=== PATIENT | male | born 1980 | race Caucasian/White ===

== ENCOUNTER 2023-07-30 06:51 | Emergency (ER) | payer OTHER, SELFPAY ==
[2023-07-30 06:51] VITALS: BP 148/82; PULSE 94; TEMP 36.6; O2SAT 99; BMI 33.9
[2023-07-30 06:58] VITALS: PULSE 88
--- NOTE | 2023-07-30 07:24 | ECG_ITS ---
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
[2023-07-30] MEDS: ONDANSETRON 4 MG RAPDIS TABLET SL (07:35)
[2023-07-30] MEDS: LORAZEPAM 2 MG/ML VIAL IM (07:35)
--- NOTE | 2023-07-30 07:36 | ED.GENADUL1 ---
HPI HPI - General Adult General Chief complaint: Anxiety Stated complaint: POSS PANIC ATTACK Time Seen by Provider: 07/30/23 07:07 Source: patient Mode of arrival: ambulance Limitations: no limitations History of Present Illness HPI narrative: Patient is a 42-year-old male who is presenting to the ER today with chief complaint of anxiety/panic attacks/chest pain. Patient is also diaphoretic. Patient says this is very normal for his panic attacks. Patient is coming by EMS from [facility]. Patient states that he has a history anxiety and panic attacks. Patient takes BuSpar and clonidine. Patient was given Vistaril to help with panic attacks which did not relieve his symptoms. Patient is asking for shot of Ativan. Patient states he has history of using fentanyl and cocaine, he has not used in over 2 months. Patient did use marijuana several weeks ago. Patient says that he is not going through any type of withdrawal at this time. Patient denies any opiate or benzo withdrawal. Patient is not suicidal homicidal. Patient is asking for injection of Ativan to help with anxiety and panic attack which has helped in the past. Patient has no falls. No headache or neck pain. Chest tightness, mild shortness of breath. No abdominal pain nausea or vomiting. No diarrhea. No acute complaints All systems are negative except as noted/marked. All systems reviewed and otherwise negative. Nurses note and vital signs reviewed and patient is not hypoxic. General: The patient appears mild distress secondary to admitted anxiety and panic attack. Patient is resting uncomfortably on cart. Patient is not toxic, lethargic, or listless Skin: Diaphoresis, no pallor noted. There is no rash noted. No petechiae, purpura. Head: Normocephalic, atraumatic Eye: Normal conjunctiva, no drainage, EOMI. PERRL Ears, Nose, Mouth, and Throat: oral mucosa is moist. Nares patent. Mouth without vesicles. Cardiovascular: Regular Rate and Rhythm, no murmur, gallop, rub; no reproducible tenderness to palpation to anterior, lateral, posterior chest wall Respiratory: Patient is in no distress, no accessory muscle use, lungs are clear to auscultation, no wheezing, rales or rhonchi Back: non-tender, no CVA tenderness bilaterally to percussion. No CT LS midline pain GI: Obese, no tenderness to palpation, no masses appreciated. No rebound, guarding, or rigidity noted. No distention Musculoskeletal: Patient has full range of motion of all of the extremities, no motor, sensory, or focal neurological deficits Neurological: A&O x4, normal speech Psychiatric: Cooperative Related Data Home Medications ?Medication ?Instructions ?Recorded ?Confirmed amlodipine 5 mg tablet 5 mg PO DAILY 07/30/23 07/30/23 atorvastatin 10 mg tablet 10 mg PO DAILY 07/30/23 07/30/23 buspirone 15 mg tablet 15 mg PO DAILY 07/30/23 07/30/23 lisinopril 10 mg tablet 10 mg PO DAILY 07/30/23 07/30/23 quetiapine 300 mg tablet (Seroquel) 300 mg PO DAILY 07/30/23 07/30/23 Allergies Allergy/AdvReac Type Severity Reaction Status Date / Time lurasidone [From Latuda] Allergy Unknown Verified 07/30/23 06:54 Opioid HPI Opioid Management Most Recent Opioid Data: No Data to Display Exam Constitutional Vital Signs, click to edit/add: Last Vital Signs Temp 97.9 F 07/30/23 06:51 Pulse 94 H 07/30/23 06:51 Resp 20 07/30/23 06:51 BP 148/82 H 07/30/23 06:51 Pulse Ox 99 07/30/23 06:51 O2 Del Method Room Air 07/30/23 06:51 Course Vital Signs Vital signs: Vital Signs Temperature 97.9 F 07/30/23 06:51 Pulse Rate 94 H 07/30/23 06:51 Respiratory Rate 20 07/30/23 06:51 Blood Pressure 148/82 H 07/30/23 06:51 Pulse Oximetry 99 07/30/23 06:51 Oxygen Delivery Method Room Air 07/30/23 06:51 Temperature 97.9 F 07/30/23 06:51 Pulse Rate 94 H 07/30/23 06:51 Respiratory Rate 20 07/30/23 06:51 Blood Pressure 148/82 H 07/30/23 06:51 Pulse Oximetry 99 07/30/23 06:51 Oxygen Delivery Method Room Air 07/30/23 06:51 Medical Decision Making MDM Narrative Medical decision making narrative: Patient declined any treatment for chest pain. Patient allowed EKG. Patient refused chest x-ray, lab work, or any other additional testing. Patient is aware of risk and benefits of refusing any additional treatment. Patient only wants oral Zofran and injection of Ativan. Patient is thankful for help and treatment. Patient will be transferred back to [facility] facility. Patient was diaphoretic, patient did look uncomfortable when I walked into the room. Patient was given medication to help relax him, patient has a functional decision-making capacity to refuse any other testing today which she did. Patient does not appear to be under the influence of alcohol or drugs, patient was thankful for help Discharge Plan Discharge Stand Alone Forms: Portal Instructions Chief Complaint: Anxiety Clinical Impression: Anxiety, Panic attack, Chest pain Patient Disposition: Home, Self-Care Time of Disposition Decision: 08:19 Condition: Good Prescriptions / Home Meds: No Action lisinopril 10 mg tablet 10 mg PO DAILY buspirone 15 mg tablet 15 mg PO DAILY atorvastatin 10 mg tablet 10 mg PO DAILY amlodipine 5 mg tablet 5 mg PO DAILY quetiapine [Seroquel] 300 mg tablet 300 mg PO DAILY Print Language: Czech Instructions: Chest Pain (ED), Panic Disorder (ED), Anxiety (ED) Additional Instructions: Follow-up with your continued regimen at [facility]. Good luck with your sobriety. Referrals: Physician,Non-Staff, MD [Primary Care Provider] - 1 week
[2023-07-30 08:37] VITALS: BP 146/87; PULSE 87; O2SAT 99
== END 2023-07-30 08:39 | disposition home or self-care (01) ==
PROVIDERS: Emergency Provider Emergency Medicine
DX: R07.9 Chest pain, unspecified (principal); F41.9 Anxiety disorder, unspecified; F41.0 Panic disorder [episodic paroxysmal anxiety]; Z79.899 Other long term (current) drug therapy
CPT/HCPCS: 93005; 96372; 99284